=== PATIENT | female | born 1970 | race Caucasian/White ===

== ENCOUNTER 2016-06-06 01:43 | Emergency (ER) | payer OTHER ==
[~2016-06-06] VITALS: Ht 154.9 cm; Wt 87.3 kg
[2016-06-06 01:49] VITALS: BP 119/89; PULSE 85; RESP 18; O2SAT 97
== END 2016-06-06 03:05 | disposition left against medical advice (07) ==
LOC: SED 01:43
DX: Z53.21 Procedure and treatment not carried out due to patient leaving prior to being seen by health care provider (principal)